=== PATIENT | male | born 1945 | race Caucasian/White ===

== ENCOUNTER 2021-06-27 09:29 | Day surgery (SDC) | payer MEDICARE ==
[~2021-06-27] VITALS: Ht 185.4 cm; Wt 90.9 kg
[2021-06-27] MEDS ORDERED: LIDOCAINE 2%, 20ML ONE (10:05)
== END 2021-06-27 10:53 | disposition home or self-care (01) ==
LOC: CACL 09:29
PROVIDERS: ATTEND Internal Medicine Cardiovascular Disease
DX: I63.9 Cerebral infarction, unspecified (principal); I25.10 Atherosclerotic heart disease of native coronary artery without angina pectoris; R55 Syncope and collapse; I10 Essential (primary) hypertension; E78.5 Hyperlipidemia, unspecified; Z79.02 Long term (current) use of antithrombotics/antiplatelets; Z79.82 Long term (current) use of aspirin; Z79.899 Other long term (current) drug therapy; Z87.891 Personal history of nicotine dependence; Z88.8 Allergy status to other drugs, medicaments and biological substances; Z95.1 Presence of aortocoronary bypass graft
CPT/HCPCS: 33285; C1764

== ENCOUNTER 2021-07-05 15:02 | Emergency (ER) | payer MEDICARE ==
[~2021-07-05] VITALS: Ht 185.4 cm; Wt 90.0 kg
--- NOTE | 2021-07-05 15:05 | NUR ---
PT BIB [facility] FROM [place] FOR SYNCOPAL EPISODE AROUND 1340 TODAY. PER , POT LOC FOR 1-2 MINUTES. DENIES TRAUMA & NO TRAUMA NOTED. PER EMS PT WAS WORKING ON RV WHEN HE FELT LOOPY AND PASSED OUT. WHEN EMS ARRIVED, PT WAS CONFUSED AND DRIVEN TO [facility] WHERE [facility] PICKED HIM UP. PT HX OF STROKE & PLAVIX. PT WAS SEEN AT [facility] YESTERDAY FOR WOUND CHECK OF LOOP RECORDER. LOOP RECORDER WAS PLACED 1 WEEK AGO. PT CHANGED INTO GOWN, ALL MONITORS IN PLACE. CALL LIGHT WITHIN REACH
--- NOTE | 2021-07-05 15:08 | NUR ---
ERP AT BS FOR EVAL
[2021-07-05] MEDS ORDERED: ASPI-1026 PO (15:25)
[2021-07-05] MEDS ORDERED: ATOR40TA78 PO (15:25)
[2021-07-05] MEDS ORDERED: ALLO100T30 PO (15:25)
[2021-07-05] MEDS ORDERED: RANO500T2 PO (15:25)
[2021-07-05] MEDS ORDERED: ISOS40TA18 PO (15:25)
[2021-07-05] MEDS ORDERED: CLOP75TA52 PO (15:25)
[2021-07-05] MEDS ORDERED: HYDR-2214 PO (15:25)
[2021-07-05] MEDS ORDERED: ESCI10TA97 PO (15:25)
[2021-07-05] MEDS ORDERED: SODIUM CHLORIDE 0.9% 1,000 ML IV ONE (15:30)
[2021-07-05] MEDS ORDERED: SODIUM CHLORIDE FLUSH 10ML SYR IVF ONE (15:30)
--- NOTE | 2021-07-05 15:30 | NUR ---
XRAY AT BS
[2021-07-05 15:46] LABS: BASOPHILS % (AUTO) 0 % (0-1); EOSINOPHILS % (AUTO) 1 % (1-7); LYMPHOCYTES % (AUTO) 8 % (22-44); MEAN CORPUSCULAR HEMOGLOBIN 33.3 pg (27.5-34.5); MEAN CORPUSCULAR HGB CONC 34.4 g/dL (33.2-36.2); MEAN PLATELET VOLUME 9.1 fL (7.4-10.4); MONOCYTES % (AUTO) 5 % (2-9); NEUTROPHILS % (AUTO) 87 % (42-75); PLATELET COUNT 167 x10^3/uL (130-400); RED BLOOD COUNT 4.39 x10^6/uL (4.38-5.82); RED CELL DISTRIBUTION WIDTH 13.9 % (9.4-14.8)
[2021-07-05 15:49] LABS: ALANINE AMINOTRANSFERASE 19 U/L (12-78); ALBUMIN 3.6 g/dL (3.4-5.0); ANION GAP 7 mmol/L (5-15); CALCIUM 8.9 mg/dL (8.5-10.1); CHLORIDE 110 mmol/L (98-107); CREATININE 1.59 mg/dL (0.7-1.3)
[2021-07-05 15:51] LABS: ALKALINE PHOSPHATASE 100 U/L (45-117); BILIRUBIN,TOTAL 0.9 mg/dL (0.2-1.0)
--- NOTE | 2021-07-05 16:07 | NUR ---
DIAMOND GR[employer]ER: JOSUE ([employer]) REPORTS INTERROGATION WNL/+NSR/NO ARRHYTHMIA; ERP & PRIMARY RN AWARE.
--- NOTE | 2021-07-05 16:23 | NUR ---
ERP AT FOR RECHECK
[2021-07-05 16:46] VITALS: BP 131/76
--- NOTE | 2021-07-05 17:33 | NUR ---
ERP AT BS TO GO OVER POC WITH PT. PT STATED HE WOULD RATHER GO HOME THAN BE ADMITTED TO HOSPITAL. ERP AWARE. FAMILY AT BS. CALL LIGHT WITHIN REACH.
--- NOTE | 2021-07-05 17:52 | NUR ---
TASK RN: Patient/Caregiver given discharge instructions and they have confirmed that they understand the instructions. Patient ambulatory with steady gait. NAD, all questions answered appropriately, denies additional needs at this time. No personal belongings left in room after discharge.
== END 2021-07-05 17:53 | disposition home or self-care (01) ==
LOC: ED 15:34
DX: R55 Syncope and collapse (principal); I10 Essential (primary) hypertension; R94.31 Abnormal electrocardiogram [ECG] [EKG]
CPT/HCPCS: 36415; 71045; 80053; 83735; 85025; 93005; 96360; 96361; 99285; J7030